=== PATIENT | male | born 1965 | race Caucasian/White ===

== ENCOUNTER 2023-05-26 15:03 | Outpatient (CLI) | payer MEDICARE, SELFPAY ==
[2023-05-26 14:34] LABS: Folate 6.7 ng/mL (8.6-20.0); Iron 43 ug/dL (65-175); Total Iron Binding Capacity 374 ug/dL (250-450); Transferrin Sat 11 % (20-55); Vitamin B12 513 pg/mL (193-986)
== END 2023-05-26 15:04 | disposition home or self-care (01) ==
LOC: LBO 15:04
PROVIDERS: PCP Nurse Practitioner; Visit Provider Internal Medicine
DX: C71.9 Malignant neoplasm of brain, unspecified (principal)
CPT/HCPCS: 36415; 82607; 82746; 83540; 83550

== ENCOUNTER 2023-05-27 13:45 | Outpatient (CLI) | payer MEDICARE, SELFPAY ==
[2023-05-27 13:30] LABS: Abs Immature Grans 0.08 10^3/uL (0.0-0.06); Absolute Eosinophil Count 0.05 10^3/uL (0.0-0.7); Absolute Lymphocyte Count 2.18 10^3/uL (1.2-3.4); Absolute Monocyte Count 0.89 10^3/uL (0.1-0.8); Absolute Neutrophil Count 4.98 10^3/uL (1.2-6.7); Basophils % 1.2; Eosinophils % 0.6; HCT 44.7 % (40.0-50.0); HGB 14.3 g/dL (13.5-17.5); Lymphocytes % 26.3; MCH 29.5 pg (27.0-33.0); MCV 92 fL (80-95); MPV 11.1 fL (8.0-11.0); Monocytes % 10.7; Neutrophils % 60.2; Platelet Count 269 10^3/uL (130-400); RBC 4.85 10^6/uL (4.36-5.78); RDW 13.1 % (11.8-14.1); RDW-SD 44.2 fL; WBC 8.28 10^3/uL (4.4-10.8)
[2023-05-27 13:47] LABS: ALT 18 U/L (16-63); AST 10 U/L (15-37); Albumin 3.5 g/dL (3.4-5.0); Alkaline Phosphatase 149 U/L (46-116); Anion Gap 3.8 mmol/L (3-11); BUN 19 mg/dL (7-18); Bilirubin, Total 0.5 mg/dL (0.2-1.0); CO2 33.2 mmol/L (21.0-32.0); CREATININE 0.9 mg/dL (0.70-1.30); Calcium 8.8 mg/dL (8.5-10.1); Chloride 103 mmol/L (98-107); Estimated GFR 97.78 (mL/min/1.73m2); Glucose 133 mg/dL (74-106); Potassium 3.6 mmol/L (3.5-5.1); Sodium 140 mmol/L (136-145); Total Protein 7.3 g/dL (6.4-8.2)
== END 2023-05-27 13:46 | disposition home or self-care (01) ==
LOC: LBO 13:48
PROVIDERS: PCP Nurse Practitioner; Visit Provider Internal Medicine
DX: C71.9 Malignant neoplasm of brain, unspecified (principal)
CPT/HCPCS: 36415; 80053; 82607; 82746; 83540; 83550; 85025

== ENCOUNTER 2023-06-02 14:32 | Outpatient (CLI) | payer MEDICARE, SELFPAY ==
[2023-06-02 13:35] LABS: Abs Immature Grans 0.03 10^3/uL (0.0-0.06); Absolute Basophil Count 0.09 10^3/uL (0.0-0.2); Absolute Eosinophil Count 0.07 10^3/uL (0.0-0.7); Absolute Lymphocyte Count 1.77 10^3/uL (1.2-3.4); Absolute Monocyte Count 0.77 10^3/uL (0.1-0.8); Absolute Neutrophil Count 4.94 10^3/uL (1.2-6.7); Basophils % 1.2; Eosinophils % 0.9; HCT 43.3 % (40.0-50.0); Immature Grans % 0.4; Lymphocytes % 23.1; MCH 29.6 pg (27.0-33.0); MCHC 32.3 % (32.0-36.0); MCV 92 fL (80-95); MPV 12.1 fL (8.0-11.0); Neutrophils % 64.4; Platelet Count 201 10^3/uL (130-400); RBC 4.73 10^6/uL (4.36-5.78); RDW 13.1 % (11.8-14.1); RDW-SD 43.7 fL; WBC 7.67 10^3/uL (4.4-10.8)
[2023-06-02 14:00] LABS: ALT 16 U/L (16-63); AST 9 U/L (15-37); Albumin 3.3 g/dL (3.4-5.0); Alkaline Phosphatase 143 U/L (46-116); Anion Gap 2.9 mmol/L (3-11); BUN 14 mg/dL (7-18); Bilirubin, Total 0.6 mg/dL (0.2-1.0); CO2 35.1 mmol/L (21.0-32.0); Calcium 9.2 mg/dL (8.5-10.1); Chloride 104 mmol/L (98-107); Estimated GFR 86.16 (mL/min/1.73m2); Glucose 119 mg/dL (74-106); Potassium 3.9 mmol/L (3.5-5.1); Sodium 142 mmol/L (136-145); Total Protein 6.9 g/dL (6.4-8.2)
--- OUTSIDE RECORDS SUMMARY | 2023-06-02 14:37 | XMS_ITS | Summary of Care ---
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 Name Role Phone Torres BAIN-KHADRA, Pamela Pandya [facility] Care Physician Unavailable Encounter 04/21/23 - 05/06/23 [facility] [address] [place] [address]- [phone] Discharge Disposition: 06H Home with Home Health Care Attending Physician: Rachel Chery DO Admitting Physician: Rachel Chery DO Referring Physician: Uday Pugh MD Allergies, Adverse Reactions, Alerts No Known Medication Allergies Medications celecoxib 200 mg oral capsule 200 mg = 1 cap, Cap, Oral, BID, 60 cap, 0 Refill(s), Route to Pharmacy Electronically, [facility] #[id number], 188, 05/02/23 13:50:00 EST, Height/Length Dosing, cm, 128.1, 05/05/23 6:37:00 EST, Weight Dosing, kg Start Date: 05/05/23 Status: Ordered gabapentin 600 mg oral tablet 600 mg, = 1 tab, Tab, Oral, q8hr, 90 tab, 0 Refill(s) Start Date: 05/04/23 Status: Ordered HYDROmorphone 4 mg oral tablet 8 mg = 2 tab, Tab, Oral, q3hr PRN, 0 Refill(s), PAIN (Scale 7-10) Start Date: 05/05/23 Status: Ordered levETIRAcetam 1000 mg oral tablet 1,000 mg = 1 tab, Tab, Oral, q12hr, 60 tab, 0 Refill(s), Route to Pharmacy Electronically, [facility] #[id number], 188, 05/02/23 13:50:00 EST, Height/Length Dosing, cm, 128.1, 05/05/23 6:37:00 EST, Weight Dosing, kg Start Date: 05/05/23 Status: Ordered methadone 5 mg oral tablet 5 mg = 1 tab, Oral, q8hr, 0 Refill(s), Indication: Pain Start Date: 04/21/23 Status: Ordered nystatin 100,000 units/g topical powder 1 bharati, Powder, Topical BID, 1 unknown unit, 0 Refill(s), Route to Pharmacy Electronically, [facility] #[id number], 188, 05/02/23 13:50:00 EST, Height/Length Dosing, cm, 128.1, 05/05/23 6:37:00 EST, Weight Dosing, kg Start Date: 05/05/23 Status: Ordered pantoprazole 40 mg oral delayed release tablet 40 mg = 1 tab, Tab-DR, Oral, Before breakfast, 30 tab, 0 Refill(s), Route to Pharmacy Electronically, [facility] #[id number], 188, 05/02/23 13:50:00 EST, Height/Length Dosing, cm, 128.1, :37:00 EST, Weight Dosing, kg Start Date: 05/05/23 Status: Ordered tamsulosin 0.4 mg oral capsule 0.4 mg = 1 cap, Cap, Oral, Daily, 30 cap, 0 Refill(s), Route to Pharmacy Electronically, [facility] #[id number], 188, 05/02/23 13:50:00 EST, Height/Length Dosing, cm, 128.1, 05/05/23 6:37:00 EST,Weight Dosing, kg Start Date: 05/05/23 Status: Ordered Problem List Condition Confirmation Course Effective Dates Status H ealth Status Informant At risk of venous thromboembolus 1 Confirmed 04/21/23 Active Chronic pain Confirmed Active Obesity Confirmed Active Paraplegia Confirmed Active Spinal cord injury Confirmed Active 1Problem added by Discern Expert Rule: EBN_VTERISKPROB_3 Results Laboratory List Name Date COVID-19 [facility] Inhouse - ENC 05/02/23 COVID-19 [facility] Inhouse - ENC 04/26/23 COVID-19 [facility] Inhouse - ENC 04/25/23 Most recent to oldest [Reference Range]: 1 2 3 Creatinine Level 0.81 mg/dL (05/05/23 5:30 AM) 0.77 mg/dL (05/02/23 6:40 AM) 0.71 mg/dL (04/28/23 6:02 AM) eGFR CKD-EPI - CRD [>=60] >60 (05/05/23 5:30 AM) >60 (05/02/23 6:40 AM) >60 (04/28/23 6:02 AM) WBC Instrument - CRD [4.23-9.07 x10^3/mcL] 10.23 x10^3/mcL *HI* (05/05/23 5:30 AM) 8.28 x10^3/mcL (05/02/23 6:40 AM) 16.11 x10^3/mcL *HI* (04/28/23 6:02 AM) RDW-SD - CRD 43.9 (05/05/23 5:30 AM) 45.1 (05/02/23 6:40 AM) 45.5 (04/28/23 6:02 AM) Estimated Creatinine Clearance 118.67 mL/min 1 (05/05/23 6:37 AM) 112.81 mL/min 2 (05/05/23 5:30 AM) 118.67 mL/min 3 (05/02/23 1:43 PM) WBC - CRD [4.23-9.07 x10^3/mcL] 10.23 x10^3/mcL *HI* (05/05/23 5:30 AM) 8.28 x10^3/mcL (05/02/23 6:40 AM) 16.11 x10^3/mcL *HI* (04/28/23 6:02 AM) RBC - CRD [4.00-5.74 x10^6/mcL] 4.71 x10^6/mcL (05/05/23 5:30 AM) 4.99 x10^6/mcL (05/02/23 6:40 AM) 4.98 x10^6/mcL (04/28/23 6:02 AM) MCV - CRD [82.1-98.2 fL] 91.5 fL (05/05/23 5:30 AM) 91.6 fL (05/02/23 6:40 AM) 92.2 fL (04/28/23 6:02 AM) MCH - CRD [25.7-32.2 pg] 30.6 pg (05/05/23 5:30 AM) 30.7 pg (05/02/23 6:40 AM) 30.3 pg (04/28/23 6:02 AM) MCHC - CRD [32.3-36.5 G/DL] 33.4 G/DL (05/05/23 5:30 AM) 33.5 G/DL (05/02/23 6:40 AM) 32.9 G/DL (04/28/23 6:02 AM) RDW - CRD [11.6-14.4 %] 12.9 % (05/05/23 5:30 AM) 13.3 % (05/02/23 6:40 AM) 13.4 % (04/28/23 6:02 AM) Platelets - CRD [154-333 x10^3/mcL] 193 x10^3/mcL (05/05/23 5:30 AM) 199 x10^3/mcL (05/02/23 6:40 AM) 243 x10^3/mcL (04/28/23 6:02 AM) NRBC - CRD 0.0 (05/05/23 5:30 AM) 0.0 (05/02/23 6:40 AM) 0.0 (04/28/23 6:02 AM) Sodium - CRD [136-143 mmol/L] 138 mmol/L (05/05/23 5:30 AM) 135 mmol/L *LOW* (05/02/23 6:40 AM) 138 mmol/L (04/28/23 6:02 AM) Potassium - CRD [3.5-5.1 mmol/L] 4.6 mmol/L (05/05/23 5:30 AM) 4.4 mmol/L (05/02/23 6:40 AM) 4.2 mmol/L (04/28/23 6:02 AM) Chloride - CRD [101-111 mmol/L] 100 mmol/L *LOW* (05/05/23 5:30 AM) 101 mmol/L (05/02/23 6:40 AM) 102 mmol/L (04/28/23 6:02 AM) Carbon Dioxide - CRD [21-32 mmol/L] 30 mmol/L (05/05/23 5:30 AM) 28 mmol/L (05/02/23 6:40 AM) 29 mmol/L (04/28/23 6:02 AM) BUN - CRD [6-26 mg/dL] 18 mg/dL (05/05/23 5:30 AM) 22 mg/dL (05/02/23 6:40 AM) 28 mg/dL *HI* (04/28/23 6:02 AM) BUN/Creat Ratio - CRD 22.2 (05/05/23 5:30 AM) 28.6 (05/02/23 6:40 AM) 39.4 (04/28/23 6:02 AM) Creatinine, Enzymatic - CRD [0.67-1.17 mg/dL] 0.81 mg/dL (05/05/23 5:30 AM) 0.77 mg/dL (05/02/23 6:40 AM) 0.71 mg/dL (04/28/23 6:02 AM) Glucose - CRD [70-99 mg/dL] 116 mg/dL 4 *HI* (05/05/23 5:30 AM) 128 mg/dL 5 *HI* (05/02/23 6:40 AM) 112 mg/dL 6 *HI* (04/28/23 6:02 AM) Calcium - CRD [8.3-10.1 mg/dL] 9.1 mg/dL (05/05/23 5:30 AM) 9.3 mg/dL (05/02/23 6:40 AM) 9.2 mg/dL (04/28/23 6:02 AM) Alkaline Phosphatase - CRD [45-117 units/L] 166 units/L *HI* (05/05/23 5:30 AM) 165 units/L *HI* (05/02/23 6:40 AM) 139 units/L *HI* (04/28/23 6:02 AM) ALT - CRD [12-78 units/L] 44 units/L (05/05/23 5:30 AM) 66 units/L (05/02/23 6:40 AM) 82 units/L *HI* (04/28/23 6:02 AM) AST - CRD [5-32 units/L] 14 units/L (05/05/23 5:30 AM) 14 units/L (05/02/23 6:40 AM) 6 units/L (04/28/23 6:02 AM) Bilirubin, Total - CRD [0.2-1.0 mg/dL] 0.6 mg/dL (05/05/23 5:30 AM) 0.4 mg/dL (05/02/23 6:40 AM) 0.6 mg/dL (04/28/23 6:02 AM) Total Protein - CRD [6.5-8.4 G/DL] 6.2 G/DL *LOW* (05/05/23 5:30 AM) 6.7 G/DL (05/02/23 6:40 AM) 6.9 G/DL (04/28/23 6:02 AM) Albumin - CRD [3.4-4.9 G/DL] 2.8 G/DL *LOW* (05/05/23 5:30 AM) 2.6 G/DL *LOW* (05/02/23 6:40 AM) 2.8 G/DL *LOW* (04/28/23 6:02 AM) Globulin - CRD [2.7-4.7 G/DL] 3.4 G/DL (05/05/23 5:30 AM) 4.1 G/DL (05/02/23 6:40 AM) 4.1 G/DL (04/28/23 6:02 AM) Albumin/Globulin Ratio - CRD [0.9-2.3] 0.8 *LOW* (05/05/23 5:30 AM) 0.6 *LOW* (05/02/23 6:40 AM) 0.7 *LOW* (04/28/23 6:02 AM) Anion Gap - CRD [2.0-11.0] 8.0 (05/05/23 5:30 AM) 6.0 (05/02/23 6:40 AM) 7.0 (04/28/23 6:02 AM) Hematocrit - CRD [37.1-50.6 %] 43.1 % (05/05/23 5:30 AM) 45.7 % (05/02/23 6:40 AM) 45.9 % (04/28/23 6:02 AM) Hemoglobin - CRD [12.6-17.1 G/DL] 14.4 G/DL (05/05/23 5:30 AM) 15.3 G/DL (05/02/23 6:40 AM) 15.1 G/DL (04/28/23 6:02 AM) Auto Neutrophil - CRD 67.2 % (05/05/23 5:30 AM) 69.9 % (05/02/23 6:40 AM) 78.9 % (04/28/23 6:02 AM) Auto Lymphocyte - CRD 20.9 % (05/05/23 5:30 AM) 14.5 % (05/02/23 6:40 AM) 10.8 % (04/28/23 6:02 AM) Auto Monocyte - CRD 8.3 % (05/05/23 5:30 AM) 12.2 % (05/02/23 6:40 AM) 7.9 % (04/28/23 6:02 AM) Auto Eos - CRD 2.8 % (05/05/23 5:30 AM) 2.2 % (05/02/23 6:40 AM) 1.2 % (04/28/23 6:02 AM) Auto Basophil - CRD 0.5 % (05/05/23 5:30 AM) 0.7 % (05/02/23 6:40 AM) 0.2 % (04/28/23 6:02 AM) Imm Granulocyte - CRD 0.3 % (05/05/23 5:30 AM) 0.5 % (05/02/23 6:40 AM) 1.0 % (04/28/23 6:02 AM) Abs Imm Granulocyte - CRD [<=0.05 x10^3/mcL] 0.03 x10^3/mcL (05/05/23 5:30 AM) 0.04 x10^3/mcL (05/02/23 6:40 AM) 0.16 x10^3/mcL *HI* (04/28/23 6:02 AM) Abs Lymphocyte - CRD [0.73-2.76 x10^3/mcL] 2.14 x10^3/mcL (05/05/23 5:30 AM) 1.20 x10^3/mcL (05/02/23 6:40 AM) 1.74 x10^3/mcL (04/28/23 6:02 AM) Abs Monocyte - CRD [0.30-0.82 x10^3/mcL] 0.85 x10^3/mcL *HI* (05/05/23 5:30 AM) 1.01 x10^3/mcL *HI* (05/02/23 6:40 AM) 1.27 x10^3/mcL *HI* (04/28/23 6:02 AM) Abs Eosinophil - CRD [0.04-0.54 x10^3/mcL] 0.29 x10^3/mcL (05/05/23 5:30 AM) 0.18 x10^3/mcL (05/02/23 6:40 AM) 0.19 x10^3/mcL (04/28/23 6:02 AM) Abs Basophil - CRD [<=0.08 x10^3/mcL] 0.05 x10^3/mcL (05/05/23 5:30 AM) 0.06 x10^3/mcL (05/02/23 6:40 AM) 0.04 x10^3/mcL (04/28/23 6:02 AM) Absolute NRBC - CRD [<=0.01 x10^3/mcL] 0.00 x10^3/mcL (05/05/23 5:30 AM) 0.00 x10^3/mcL (05/02/23 6:40 AM) 0.00 x10^3/mcL (04/28/23 6:02 AM) MPV - CRD [8.97-11.96 fL] 11.70 fL (05/05/23 5:30 AM) 11.90 fL (05/02/23 6:40 AM) 12.40 fL *HI* (04/28/23 6:02 AM) Abs Neut - CRD [1.78-5.38 x10^3/mcL] 6.87 x10^3/mcL *HI* (05/05/23 5:30 AM) 5.79 x10^3/mcL *HI* (05/02/23 6:40 AM) 12.71 x10^3/mcL *HI* (04/28/23 6:02 AM) N/A Male (05/02/23 3:35 PM) N/A Male (04/26/23 11:26 AM) N/A Male (04/25/23 12:09 PM) Resides in [facility] setting No (05/02/23 3:35 PM) No (04/26/23 11:26 AM) No (04/25/23 12:09 PM) First test for COVID-19 No (05/02/23 3:35 PM) No (04/26/23 11:26 AM) No (04/25/23 12:09 PM) Employed in Healthcare No (05/02/23 3:35 PM) No (04/26/23 11:26 AM) No (04/25/23 12:09 PM) Hospitalized for COVID-19 No (05/02/23 3:35 PM) No (04/26/23 11:26 AM) No (04/25/23 12:09 PM) Symptomatic as defined by CDC No (05/02/23 3:35 PM) Yes (04/26/23 11:26 AM) Yes (04/25/23 12:09 PM) Admitted to ICU for COVID-19 No (05/02/23 3:35 PM) No (04/26/23 11:26 AM) No (04/25/23 12:09 PM) Date of onset/exp 02-MAY-2023 *NA* (05/02/23 3:35 PM) 26-APR-2023 *NA* (04/26/23 11:26 AM) 24-APR-2023 *NA* (04/25/23 12:09 PM) Iinstrument Number - ENC [id number] *NA* (05/02/23 3:35 PM) [id number] *NA* (04/26/23 11:26 AM) [id number] *NA* (04/25/23 12:09 PM) [id number] - ENC [Negative] Negative (05/02/23 3:35 PM) Negative (04/26/23 11:26 AM) Negative (04/25/23 12:09 PM) COVID-19 Test Type - ENC SHANTE (05/02/23 3:35 PM) SHANTE (04/26/23 11:26 AM) SHANTE (04/25/23 12:09 PM) Specimen Site COVID-19 - ENC Internal nose (05/02/23 3:35 PM) Internal nose (04/26/23 11:26 AM) Internal nose (04/25/23 12:09 PM) Lot Expiration Date - ENC 23-MAY-2023 *NA* (05/02/23 3:35 PM) 23-MAY-2023 *NA* (04/26/23 11:26 AM) 23-MAY-2023 *NA* (04/25/23 12:09 PM) Lot Number - ENC [id number] *NA* (05/02/23 3:35 PM) [id number] *NA* (04/26/23 11:26 AM) [id number] *NA* (04/25/23 12:09 PM) Residence Type Hospital (05/02/23 3:35 PM) Hospital (04/26/23 11:26 AM) Hospital (04/25/23 12:09 PM) DI Number [id number] (05/02/23 3:35 PM) [id number] (04/26/23 11:26 AM) [id number] (04/25/23 12:09 PM) 1Result Comment: Calculated using method: Cockcroft-Gault (default) Calculated using Formula : (140-ageInYears)*IBW/(72*scrInMGperDL) Age: 58 (09375837159.0) Serum Creatinine: 0.77 mg/dL (66394534371.0) Height: 188 cm (51224466585.0) Weight: 128.1 kg (IBW = 82.236 kg) 2Result Comment: Calculated using method: Cockcroft-Gault (default) Calculated using Formula : (140-ageInYears)*IBW/(72*scrInMGperDL) Age: 58 (12091839823.0) Serum Creatinine: 0.81 mg/dL (10305288174.0) Height: 188 cm (47484850613.0) Weight: 128.1 kg (IBW = 82.236 kg) 3Result Comment: Calculated using method: Cockcroft-Gault (default) Calculated using Formula : (140-ageInYears)*IBW/(72*scrInMGperDL) Age: 58 (15274696897.0) Serum Creatinine: 0.77 mg/dL (07934645476.0) Height: 188 cm (93399273560.0) Weight: 129 kg (IBW = 82.236 kg) 4Result Comment: Impairment: Fasting glucose 100-125 mg/dL Diabetes Mellitus: Fasting glucose >=126 mg/dL Random glucose >=200 mg/dL 5Result Comment: Impairment: Fasting glucose 100-125 mg/dL Diabetes Mellitus: Fasting glucose >=126 mg/dL Random glucose >=200 mg/dL 6Result Comment: Impairment: Fasting glucose 100-125 mg/dL Diabetes Mellitus: Fasting glucose >=126 mg/dL Random glucose >=200 mg/dL Vital Signs Most recent to oldest [Reference Range]: 1 2 3 Temperature Oral F [96.4-99.1 DegF] 97.9 DegF (05/06/23 6:57 AM) 97.4 DegF (05/06/23 5:45 AM) 97.9 DegF (05/05/23 7:40 PM) Peripheral Pulse Rate [60-100 bpm] 68 bpm (05/06/23 6:57 AM) 62 bpm (05/06/23 5:45 AM) 75 bpm (05/05/23 7:40 PM) Respiratory Rate [14-20 br/min] 16 br/min (05/06/23 6:57 AM) 16 br/min (05/06/23 5:44 AM) 17 br/min (05/05/23 7:40 PM) Blood Pressure [90-140/60-90 mmHg] 118/72mmHg (05/06/23 6:57 AM) 108/73mmHg (05/06/23 5:45 AM) 111/72mmHg (05/05/23 7:40 PM) Mean Arterial Pressure, Cuff 84 mmHg (05/06/23 5:45 AM) 85 mmHg (05/05/23 7:40 PM) 95 mmHg (05/05/23 7:21 AM) Extremity used to obtain blood pressure Left Arm (05/05/23 7:40 PM) Right Arm (05/04/23 3:42 PM) Right Arm (05/04/23 10:47 AM) Cuff Size. Medium (05/05/23 7:40 PM) Medium (05/04/23 3:42 PM) Medium (05/04/23 10:47 AM) Diastolic Blood Pressure with Activity [60-90 mmHg] 86 mmHg (04/24/23 8:00 AM) Systolic Blood Pressure with Activity [90-140 mmHg] 140 mmHg (04/24/23 8:00 AM) Systolic Blood Pressure Post [90-140 mmHg] 140 mmHg (04/25/23 2:00 PM) Diastolic Blood Pressure Post [60-90 mmHg] 60 mmHg (04/25/23 2:00 PM) Temperature Oral 36.3 DegC 1 (05/06/23 5:45 AM) 36.6 DegC 2 (05/05/23 7:40 PM) 36.9 DegC 3 (05/05/23 7:21 AM) 1Result Comment: Charted by SYSTEM secondary to charting of Temperature Oral F on a Vitals Monitor. Rule: VITALSLINK_CALCULATIONS_2 2Result Comment: Charted by SYSTEM secondary to charting of Temperature Oral F on a Vitals Monitor. Rule: VITALSLINK_CALCULATIONS_2 3Result Comment: Charted by SYSTEM secondary to charting of Temperature Oral F on a Vitals Monitor. Rule: VITALSLINK_CALCULATIONS_2 Social History Social History Type Response Sex Male Patient Care team information Personnel Name: Torres [facility], Pamela Pandya
== END 2023-06-02 14:33 | disposition home or self-care (01) ==
LOC: LBO 14:32
PROVIDERS: PCP Family Medicine; Visit Provider Internal Medicine
DX: C71.9 Malignant neoplasm of brain, unspecified (principal)
CPT/HCPCS: 36415; 80053; 85025

== ENCOUNTER 2023-06-09 04:16 | Outpatient (CLI) | payer MEDICARE, SELFPAY ==
[2023-06-09 10:38] LABS: Abs Immature Grans 0.02 10^3/uL (0.0-0.06); Absolute Basophil Count 0.09 10^3/uL (0.0-0.2); Absolute Eosinophil Count 0.11 10^3/uL (0.0-0.7); Absolute Lymphocyte Count 1.43 10^3/uL (1.2-3.4); Absolute Monocyte Count 0.62 10^3/uL (0.1-0.8); Absolute Neutrophil Count 4.62 10^3/uL (1.2-6.7); Basophils % 1.3; Eosinophils % 1.6; HCT 43.4 % (40.0-50.0); HGB 14.2 g/dL (13.5-17.5); Immature Grans % 0.3; Lymphocytes % 20.8; MCHC 32.7 % (32.0-36.0); MCV 92 fL (80-95); MPV 12.2 fL (8.0-11.0); Platelet Count 165 10^3/uL (130-400); RBC 4.74 10^6/uL (4.36-5.78); RDW 13.2 % (11.8-14.1); RDW-SD 44.3 fL; WBC 6.89 10^3/uL (4.4-10.8)
[2023-06-09 12:28] LABS: ALT 18 U/L (16-63); AST 9 U/L (15-37); Albumin 3.3 g/dL (3.4-5.0); Alkaline Phosphatase 133 U/L (46-116); Anion Gap 2.6 mmol/L (3-11); BUN 11 mg/dL (7-18); Bilirubin, Total 0.4 mg/dL (0.2-1.0); CO2 34.4 mmol/L (21.0-32.0); CREATININE 0.9 mg/dL (0.70-1.30); Calcium 8.8 mg/dL (8.5-10.1); Chloride 106 mmol/L (98-107); Estimated GFR 97.78 (mL/min/1.73m2); Glucose 124 mg/dL (74-106); Sodium 143 mmol/L (136-145); Total Protein 6.8 g/dL (6.4-8.2)
== END 2023-06-09 04:17 | disposition home or self-care (01) ==
LOC: LBO 04:16
PROVIDERS: PCP Family Medicine; Visit Provider Internal Medicine
DX: C71.9 Malignant neoplasm of brain, unspecified (principal)
CPT/HCPCS: 36415; 80053; 85025

== ENCOUNTER 2023-06-15 13:26 | Outpatient (CLI) | payer MEDICARE, SELFPAY ==
[2023-06-15 13:14] LABS: Abs Immature Grans 0.02 10^3/uL (0.0-0.06); Absolute Basophil Count 0.06 10^3/uL (0.0-0.2); Absolute Eosinophil Count 0.08 10^3/uL (0.0-0.7); Absolute Lymphocyte Count 1.06 10^3/uL (1.2-3.4); Absolute Monocyte Count 0.44 10^3/uL (0.1-0.8); Absolute Neutrophil Count 3.67 10^3/uL (1.2-6.7); Basophils % 1.1; Eosinophils % 1.5; HCT 43.4 % (40.0-50.0); HGB 14.2 g/dL (13.5-17.5); Immature Grans % 0.4; Lymphocytes % 19.9; MCH 29.5 pg (27.0-33.0); MCHC 32.7 % (32.0-36.0); MCV 90 fL (80-95); MPV 11.6 fL (8.0-11.0); Monocytes % 8.3; Neutrophils % 68.8; Platelet Count 203 10^3/uL (130-400); RBC 4.81 10^6/uL (4.36-5.78); RDW-SD 42.9 fL; WBC 5.33 10^3/uL (4.4-10.8)
[2023-06-15 13:30] LABS: ALT 21 U/L (16-63); AST 15 U/L (15-37); Albumin 3.4 g/dL (3.4-5.0); Alkaline Phosphatase 136 U/L (46-116); Anion Gap 8.1 mmol/L (3-11); BUN 11 mg/dL (7-18); Bilirubin, Total 0.6 mg/dL (0.2-1.0); CO2 28.9 mmol/L (21.0-32.0); CREATININE 0.9 mg/dL (0.70-1.30); Chloride 106 mmol/L (98-107); Estimated GFR 97.78 (mL/min/1.73m2); Glucose 153 mg/dL (74-106); Potassium 4.1 mmol/L (3.5-5.1); Sodium 143 mmol/L (136-145); Total Protein 6.9 g/dL (6.4-8.2)
== END 2023-06-15 13:27 | disposition home or self-care (01) ==
LOC: LBO 13:27
PROVIDERS: PCP Family Medicine; Visit Provider Internal Medicine
DX: C71.9 Malignant neoplasm of brain, unspecified (principal)
CPT/HCPCS: 36415; 80053; 85025